=== PATIENT | female | born 1955 | race Asian ===

== ENCOUNTER → 2017-03-18 | Outpatient (CLI) | payer OTHER | LOC: BRMIMAGING 13:09 | PROVIDERS: ATTEND Family Medicine | DX: Z12.31 Encounter for screening mammogram for malignant neoplasm of breast (principal) | CPT/HCPCS: G0202 ==

== ENCOUNTER → 2017-04-08 | Outpatient (CLI) | payer OTHER | LOC: BRMIMAGING 11:36 | PROVIDERS: ATTEND Family Medicine | DX: M79.89 Other specified soft tissue disorders (principal); M77.31 Calcaneal spur, right foot | CPT/HCPCS: 73610-PO ==

== ENCOUNTER → 2017-05-13 | Outpatient (CLI) | payer OTHER | LOC: BRMIMAGING 11:34 | PROVIDERS: ATTEND Family Medicine | DX: S82.831D Other fracture of upper and lower end of right fibula, subsequent encounter for closed fracture with routine healing (principal); M77.31 Calcaneal spur, right foot | CPT/HCPCS: 73600-PO ==

== ENCOUNTER → 2017-05-27 | Outpatient (CLI) | payer OTHER | LOC: BRMIMAGING 14:51 | PROVIDERS: ATTEND Family Medicine | DX: J40 Bronchitis, not specified as acute or chronic (principal) | CPT/HCPCS: 71020-PO ==

== ENCOUNTER → 2018-03-19 | Outpatient (CLI) | payer OTHER | LOC: BRMIMAGING 12:59 | PROVIDERS: ATTEND Family Medicine | DX: Z12.31 Encounter for screening mammogram for malignant neoplasm of breast (principal) ==

== ENCOUNTER → 2019-03-21 | Outpatient (CLI) | payer OTHER | LOC: BRMIMAGING 14:30 ==